=== PATIENT | female | born 1985 | race Caucasian/White ===

== ENCOUNTER 2025-01-10 07:38 | Emergency (ER) | payer OTHER, SELFPAY ==
[2025-01-10 07:45] VITALS: BP 141/94
--- NOTE | 2025-01-10 08:20 | ED.GENMED ---
History of Present Illness
General
Chief Complaint: Ear Problem
Time Seen by Provider: 01/10/25 08:19
History of Present Illness
History of Present Illness:
TIME OF INITIAL ENCOUNTER: 8:20 AM
HPI: 4 days ago, the patient had URI type symptoms associated with congestion, sore throat, some headache. Those symptoms had been improving but last night into today she developed rather debilitating left ear pain associated with tinnitus and
discomfort in the back of her head behind the left ear that radiated down to the neck. She was very concerned about this discomfort and came in here for further evaluation. No fevers currently.
EXAM:
GENERAL: Well appearing in no distress
HEENT: Moist oral mucosa, right TM normal, left TM is bulging and erythematous
CARDIOVASCULAR: No murmurs, borderline tachycardic heart rate, regular rhythm, No chest wall tenderness
PULMONARY: No respiratory distress, breath sounds are clear and equal
ABDOMEN: Soft with no peritoneal signs, no tenderness
NEUROLOGIC: Excellent strength all extremities, no coordination deficits
PSYCHIATRIC: Appropriate mental status, normal insight and judgement
EXTREMITIES: Nontender, no edema, moves all extremities equally
SKIN: No rash, no lesions
NUMBER AND COMPLEXITY OF PROBLEMS ADDRESSED AT THE ENCOUNTER
� Chronic conditions affecting care: Gastritis, has had tonsillectomy
� Acute Exacerbation and/or Progression of Chronic Illness: This is an acute problem
� Differential Diagnosis includes: Labyrinthitis, otitis media with effusion, low suspicion for bacterial infection, URI
AMOUNT AND/OR COMPLEXITY OF DATA TO BE REVIEWED AND ANALYZED
� I performed an independent evaluation of and my interpretation is:
EKG:
CT: CT brain shows no acute abnormality
X-rays:
Laboratory Studies:
Other:
� Review of other/old records: The patient was seen here in 2019 related to chest discomfort
� Clinical information was obtained by an independent historian: I spoke to at bedside
� Prescriptions/Medications Considered but not given: Considered antibiotics however more likely this is viral in nature, considered Toradol however the patient just had ibuprofen approximately 3-1/2 hours ago.
� Further testing considered but not performed:
RISK OF COMPLICATIONS AND/OR MORBIDITY OR MORTALITY OF PATIENT MANAGEMENT
� Social determinants of health affecting care:
� Discussion with other providers:
� Escalation of care including admission/observation vs risk of discharge considered: 4 days of URI symptoms which has been improving however now with rather debilitating tinnitus and left head/ear discomfort. Will obtain CT
imaging as there is a family history which concerns the patient of cerebral aneurysm. She has a normal neurologic examination. Will try steroids as well.
ANY OTHER UPDATES:
10:30 AM: I reassessed patient. No change in her clinical condition. Appears comfortable. Will start steroids and recommend Zyrtec-D. She will also try Tylenol for headache. Recommend that she avoids NSAIDs while on steroids. She will also
follow-up with ENT. Work note given for today.
Past History
Past History
ED Past Medical History: Arrthythmia (PVCs)
ED Past Surgical History: Orthopedic and Tonsilectomy
Social History
Tobacco: Non-smoker
Personal: Single
Phy Exam
Physical Exam
Physical Exam:
See HPI
Course
Orders/Labs/Results
Orders:
Orders
01/10/25 08:40
CT Head W/o Iv Contrast Urgent
Comment:
Reason For Exam: tinnitus, severe OLIVER, hcg not needed
Prednisone [Deltasone] 50 mg PO NOW STA
Vital Signs
Initial and Last Documented VS:
Initial Vital Signs
Temp Pulse Resp BP Pulse Ox
36.7 C 110 16 141/94 98
01/10/25 07:45 01/10/25 07:45 01/10/25 07:45 01/10/25 07:45 01/10/25 07:45
Last Documented Vital Signs
Temp Pulse Resp BP Pulse Ox
36.7 C 92 18 127/83 97
01/10/25 07:45 01/10/25 09:49 01/10/25 09:49 01/10/25 09:49 01/10/25 09:49
*Critical Care Note
Total Time (30-74mins, 75-104mins- exclusive of procedures): Not Applicable
ED Attending Note
-
Portions of this chart may have been created with voice recognition software.� Occasional wrong word or��sound alike� substitutions may have occurred due to the inherent limitations of voice recognition software.
Discharge Plan
Departure
Patient Disposition: Home (Routine Discharge)
Date of Disposition: 01/10/25
Time of Disposition: 10:20
Patient with high blood pressure during this ER visit?: Yes
Discharge Problem:
Labyrinthitis, acute viral
Instructions: Labyrinthitis
Prescriptions:
New
prednisone 50 mg tablet
50 mg PO DAILY Qty: 4 0RF
Referrals:
NONE,* [Family Provider] -
Quan Damico MD [Active] - Follow up in 2-3 days
Stand Alone Forms: Return to Work
Activity Restrictions/Additional Instructions:
I have given you the contact information for local ENT doctor to follow-up with, Dr. Damico. I sent a prescription for steroids to your pharmacy over the next few days. The CAT scan of the brain shows no acute abnormality. I also recommend that
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
Interventions
Interventions:
*Risk Screen - Suicide Last Done: 01/10/25 07:45
*General Assessment Last Done: 01/10/25 09:49
*Neglect/Abuse Screening Last Done: 01/10/25 07:45
*ED COVID-19 Vaccine History Last Done: 01/10/25 09:49
Discharge Date and Time
Print Language: PORTUGUESE
[2025-01-10] MEDS: DELTASONE 50 MG PO (09:31)
[2025-01-10 09:49] VITALS: BP 127/83
== END 2025-01-10 10:40 | disposition home or self-care (01) ==
LOC: EMR 07:38
PROVIDERS: EMERGENCY PHYSICIAN Emergency Medicine
DX: H83.09 Labyrinthitis, unspecified ear (principal); R03.0 Elevated blood-pressure reading, without diagnosis of hypertension
CPT/HCPCS: 99284; 70450